=== PATIENT | female | born 1955 | race Caucasian/White ===

== ENCOUNTER 2025-04-08 07:12 | Day surgery (SDC) | payer OTHER ==
[~2025-04-08] VITALS: Ht 157.5 cm; Wt 65.9 kg
[~2025-04-08 07:12] MED LIST: ALBU8.5H8 IH; CALC667C PO; OMEP20CA12 PO; ONDA4TAB10 PO; PRED-554 PO; SODIUM CHLORIDE 0.9% 1,000 ML ONE; [UNRECOGNIZED DRUG - CODE] PO
[2025-04-08] MEDS: SODIUM CHLORIDE 0.9% 1,000 ML IV ONE (08:08)
[2025-04-08] MEDS ORDERED: FentaNYL CITRATE PF 100 MCG/2 ML VIAL ONE (08:36)
[2025-04-08] MEDS ORDERED: MIDAZOLAM HCL 2 MG/2 ML VIAL ONE (08:36)
[2025-04-08 09:48] VITALS: PULSE 69; RESP 18; O2SAT 99
[2025-04-08 12:50] LABS: GLUCOMETER DEV NAME(LOC) SDS.; GLUCOSE,POINT OF CARE 94 MG/DL (70-110)
== END 2025-04-08 12:40 | disposition home or self-care (01) ==
LOC: SDS 07:12
PROVIDERS: ATTEND Internal Medicine Critical Care Medicine
DX: R05.3 Chronic cough (principal); R49.0 Dysphonia; R04.2 Hemoptysis; J38.4 Edema of larynx; B37.0 Candidal stomatitis; J45.909 Unspecified asthma, uncomplicated; Z79.899 Other long term (current) drug therapy; Z99.2 Dependence on renal dialysis; Z98.890 Other specified postprocedural states
CPT/HCPCS: 31623; 82962; 87206; 87101; 87220; 87070; 88108; 31624; 71045; 87015; J3010; J2250; J2919; J7030